=== PATIENT | female | born 1985 | race African-American/Black ===

== ENCOUNTER 2017-07-01 10:26 | Outpatient (CLI) | payer OTHER ==
--- NOTE | 2017-07-01 13:52 | RAD ---
LUMBAR SPINE: Five views. Lateral views were taken with neutral, flexion, and extension positions. HISTORY: Low back pain. FINDINGS: Lumbar vertebrae maintain normal height and alignment. There I loss of disk space at L5-S1. Minimal osteophytes. No evidence of spondylolisthesis. No change in alignment with flexion and extension. IMPRESSION: Mild loss of disk space at L5-S1. Evidence of mild facet hypertrophy at L4-5 and L5-S1 with minimal degenerative change. POS: NITZA
== END 2017-07-01 10:27 | disposition home or self-care (01) ==
LOC: TBSIIMAG 10:26
PROVIDERS: ATTEND Surgery
DX: M54.5 Low back pain (principal); M47.896 Other spondylosis, lumbar region; M51.37 Other intervertebral disc degeneration, lumbosacral region; M53.84 Other specified dorsopathies, thoracic region
CPT/HCPCS: 72110

== ENCOUNTER 2017-08-15 07:57 | Outpatient (CLI) | payer OTHER ==
--- NOTE | 2017-08-15 10:21 | MRI ---
MRI LUMBAR SPINE WITHOUT CONTRAST: Date: 08/15/17 HISTORY: M54.16, lumbar radiculopathy. COMPARISON: MRI lumbar spine dated 02/15/17. FINDINGS: Background marrow signal is normal. The lumbar lordosis is maintained. Aortic size is nonaneurysmal. Visualized portions of the kidneys are unremarkable. Paraspinal musculature is normal. Conus medullar is terminates at the mid L1 vertebral body. Levels are as follows: T12-L1: Normal disc. No neural foraminal or spinal canal narrowing. L1-2: Normal disc. No significant neural foraminal or spinal canal narrowing. L2-3: Normal disc. No significant neural foraminal or spinal canal narrowing. L3-4: Normal disc. No significant neural foraminal or spinal canal narrowing. L4-5: Normal disc. No significant neural foraminal or spinal canal narrowing. L5-1: There is moderate disc desiccation. There is a central focal disc herniation with abutment of the right S1 nerve root, this is similar. No significant neural foraminal narrowing. IMPRESSION: Unchanged focal central disc extrusion L5-S1 with focal abutment of the right S1 nerve root, with min imal neural foraminal narrowing. No new disc herniation. POS: BEL
== END 2017-08-15 07:58 | disposition home or self-care (01) ==
LOC: SCSMRI 07:57
PROVIDERS: ATTEND Surgery
DX: M51.27 Other intervertebral disc displacement, lumbosacral region (principal)
CPT/HCPCS: 72148